=== PATIENT | female | born 1980 | race Caucasian/White ===

== ENCOUNTER 2016-10-16 17:32 | Emergency (ER) | payer MEDICARE, MEDICAID ==
[2016-10-16 18:04] VITALS: BP 110/65
--- NOTE | 2016-10-16 18:37 | UC ---
Skin Complaint HPI - HPI Summary HPI Summary: The patient comes in today for: 1. Rash: Onset: 3 days ago. Palliative/Provocative: Hot showers makes it worse. Feels "Rough." Quality: Itchy--a lot. Region: chest, abdomen, hips, under her legs, and antecubital fossa, Severity: 8/10 (itching) Time: Constant. Associated symptoms: Previous treatment: She tried OTC 1% hydrocortisone ointment which did not help. Skin disease history: Eczema in the winter. Fevers: None. Discharge: None. She has not seen anyone for this before. In the past, she has not seen anyone for her eczema in the winter. She will only have a "few patches" in the winter. She knows of no things that she is exposed to that bring it on. PCP: She sees Ms. Valle * - History of Current Complaint Chief Complaint: UCSkin Time Seen by Provider: 10/16/16 18:29 Stated Complaint: RASH Hx Obtained From: Patient Hx Last Menstrual Period: Mirena ?: No - Allergy/Home Medications Allergies/Adverse Reactions: Allergies Allergy/AdvReac Type Severity Reaction Status Date / Time No Known Allergies Allergy Verified 10/16/16 18:03 Review of Systems Constitutional: Negative Skin: Rash Eyes: Negative ENT: Negative Respiratory: Negative Cardiovascular: Negative Gastrointestinal: Negative Genitourinary: Negative All Other Systems Reviewed And Are Negative: Yes PMH/Surg Hx/FS Hx/Imm Hx Previously Healthy: No Endocrine History Of: Denies: Diabetes, Thyroid Disease, Hyperthyroidism, Hypothyroidism, Dyslipidemia Cardiovascular History Of: Denies: Cardiac Disorders, Hypertension, Pacemaker/ICD, Myocardial Infarction , Congestive Heart Failure, Atrial Fibrillation, Deep Vein Thrombosis, Bleeding Disorders Respiratory History Of: Denies: COPD, Asthma, Bronchitis, Pneumonia, Pulmonary Embolism GI/ History Of: Reports: Ulcer - small intestine Denies: Gastroesophageal Reflux, Gastrointestinal Bleed, Gall Bladder Disease , Kidney Stones, Diverticulitis, Renal Disease, Urosepsis Neurological History Of: Denies: TIA, CVA, Dementia, Seizures, Migraine Psychological History Of: Reports: Anxiety - On no medications (supposed to be on medications). Denies: Depression, Bipolar Disorder, Schizophrenia, Post Traumatic Stress Disorder Cancer History Of: Denies: Lung Cancer, Colorectal Cancer, Breast Cancer, Prostate Cancer, Cervical Cancer Other History Of: Negative For: HIV, Hepatitis B, Hepatitis C, Anticoagulant Therapy - Surgical History Surgical History: None Surgery Procedure, Year, and Place: Endometriosis. Laparoscopy - Family History Known Family History: Positive: Cardiac Disease, Hypertension, Diabetes - Social History Occupation: Unemployed Alcohol Use: None Substance Use Type: None Smoking Status (MU): Former Smoker Type: Cigarettes Amount Used/How Often: 1 PPD Length of Time of Smoking/Using Tobacco: 14 Years Household Exposure Type: Cigarettes Physical Exam Triage Information Reviewed: Yes Appearance: Well-Appearing, No Pain Distress, Well-Nourished Vital Signs: Initial Vital Signs Temp 97.7 F 10/16/16 17:58 Pulse 79 10/16/16 17:58 Resp 16 10/16/16 17:58 BP 110/65 10/16/16 17:58 Pulse Ox 99 10/16/16 17:58 Vital Signs Reviewed: Yes Eyes: Positive: Conjunctiva Clear. Negative: Discharge ENT: Positive: Hearing grossly normal. Negative: Pharyngeal erythema, Nasal congestion, Nasal drainage, TM bulging, TM dull, TM red, Tonsillar swelling, Tonsillar exudate Dental: Negative: Gross Decay/Caries @, Dental Fracture @ Neck: Positive: Supple, Nontender, No Lymphadenopathy. Negative: Nuchal Rigidity Respiratory: Positive: Lungs clear, No respiratory distress, No accessory muscle use. Negative: Crackles, Wheezing, Expiration, Inspiration Cardiovascular: Positive: RRR, No Murmur Abdomen Description: Positive: Nontender, No Organomegaly, Soft. Negative: Distended, Guarding Musculoskeletal: Positive: Strength Intact, ROM Intact, No Edema Neurological: Positive: Alert, Muscle Tone Normal Psychological: Positive: Age Appropriate Behavior, Consolable Skin: Positive: rashes - She has slight erythema and slight raised nature to the erythema on the lateral hips, behind the knees, antecubital fossa, and inframammary areas. Course/Dx - Course Course Of Treatment: Patient was told that she may have a fungal infection under the breasts, but she has dry and irritated skin. She was told to only use Dove soap (without scents or color) and no other skin preparations. - Differential Diagnoses - Skin Complaint Differential Diagnoses: Cellulitis, Eczema, Urticaria - Diagnoses Provider Diagnoses: eczema. asteatotic dermatitis. candidal dermatitis ( inframammary) Discharge - Discharge Plan Condition: Stable Disposition: HOME Patient Education Materials: Eczema (ED), Dermatitis (ED) Referrals: Sylvain Styles DO [Primary Care Provider] - 1 Week (Please see your primary care provider in about a week to see how well you are doing. If you get worse, please be seen sooner.)
== END 2016-10-16 19:10 | disposition home or self-care (01) ==
LOC: UCCORT 17:32
DX: L30.8 Other specified dermatitis (principal); B37.2 Candidiasis of skin and nail; Z87.891 Personal history of nicotine dependence
CPT/HCPCS: 99212; G0463

== ENCOUNTER 2016-12-04 08:43 | Emergency (ER) | payer MEDICARE, MEDICAID ==
[2016-12-04 09:53] VITALS: BP 124/83
--- NOTE | 2016-12-04 10:07 | UC ---
Respiratory Complaint HPI - HPI Summary HPI Summary: 3d of sinus congestion, chills, body aches, malaise, poor appetite, scratchy throat. No cough so far. Boyfriend and son ill with similar symptoms. No rash. No vomiting or diarrhea. Taking Sudafed Q2 hrs because she feels so bad and congested - History of Current Complaint Chief Complaint: UCRespiratory Stated Complaint: SINUS FEVER DIZZY Time Seen by Provider: 12/04/16 09:48 Hx Obtained From: Patient Hx Last Menstrual Period: HAS AN IUD, DOES NOT HAVE REG PERIODS Onset/Duration: Gradual Onset, Lasting Days - 3 Timing: Constant Severity Initially: Mild Severity Currently: Mild Aggravating Factors: Recumbent Position Alleviating Factors: OTC Meds Associated Signs And Symptoms: Positive: Fever - subjective, Chills, URI, Nasal Congestion, Hoarseness, Sinus Discomfort - Risk Factors Pulmonary Embolism Risk Factors: Negative Cardiac Risk Factors: Negative Pseudomonas Risk Factors: Negative Tuberculosis Risk Factors: Negative - Allergies/Home Medications Allergies/Adverse Reactions: Allergies Allergy/AdvReac Type Severity Reaction Status Date / Time No Known Allergies Allergy Verified 12/04/16 09:43 Home Medications: Home Medications Levonorgestrel (IUD) (NF) [Mirena (NF)] 20 mcg IU 12/04/16 [History] Cdkmcpnsxxbxa-Cglgrcwcrmcie-Fd [Tylenol Sinus Congestion 5-325-200 mg] 12 tab PO Q2H PRN 12/04/16 [History Confirmed 12/04/16] PMH/Surg Hx/FS Hx/Imm Hx Endocrine History Of: Denies: Diabetes, Thyroid Disease, Hyperthyroidism, Hypothyroidism, Dyslipidemia Cardiovascular History Of: Denies: Cardiac Disorders, Hypertension, Pacemaker/ICD, Myocardial Infarction , Congestive Heart Failure, Atrial Fibrillation, Deep Vein Thrombosis, Bleeding Disorders Respiratory History Of: Denies: COPD, Asthma, Bronchitis, Pneumonia, Pulmonary Embolism GI/ History Of: Reports: Ulcer - small intestine Denies: Gastroesophageal Reflux, Gastrointestinal Bleed, Gall Bladder Disease , Kidney Stones, Diverticulitis, Renal Disease, Urosepsis Neurological History Of: Denies: TIA, CVA, Dementia, Seizures, Migraine Psychological History Of: Reports: Anxiety - On no medications (supposed to be on medications). Denies: Depression, Bipolar Disorder, Schizophrenia, Post Traumatic Stress Disorder Cancer History Of: Denies: Lung Cancer, Colorectal Cancer, Breast Cancer, Prostate Cancer, Cervical Cancer Other History Of: Negative For: HIV, Hepatitis B, Hepatitis C, Anticoagulant Therapy - Surgical History Surgical History: None Surgery Procedure, Year, and Place: Endometriosis. Laparoscopy - Family History Known Family History: Positive: Cardiac Disease, Hypertension, Diabetes - Social History Occupation: Unemployed - stay at home mom Lives: With Family Alcohol Use: None Substance Use Type: None Smoking Status (MU): Former Smoker Type: Cigarettes Amount Used/How Often: 1 PPD Length of Time of Smoking/Using Tobacco: 14 Years Household Exposure Type: Cigarettes - Immunization History Most Recent Influenza Vaccination: AUG 2016 Review of Systems Constitutional: Fever, Chills, Fatigue Skin: Negative Eyes: Negative ENT: Sore Throat, Nasal Discharge Respiratory: Negative Cardiovascular: Negative Gastrointestinal: Negative Genitourinary: Negative Motor: Negative Neurovascular: Negative Musculoskeletal: Negative Neurological: Headache Psychological: Negative All Other Systems Reviewed And Are Negative: Yes Physical Exam Triage Information Reviewed: Yes Appearance: Well-Appearing, No Pain Distress, Well-Nourished Vital Signs: Initial Vital Signs Temp 97.9 F 12/04/16 09:46 Pulse 79 12/04/16 09:46 Resp 24 12/04/16 09:46 BP 124/83 12/04/16 09:46 Pulse Ox 99 12/04/16 09:46 Vital Signs Reviewed: Yes Eye Exam: Normal Eyes: Positive: Conjunctiva Clear ENT: Positive: Hearing grossly normal, Pharynx normal, Nasal congestion, Nasal drainage, TMs normal, Muffled/hoarse voice - hoarse. Negative: Pharyngeal erythema, Tonsillar swelling, Tonsillar exudate, Trismus Neck exam: Normal Neck: Positive: Supple Respiratory Exam: Normal Respiratory: Positive: Lungs clear, Normal breath sounds, No respiratory distress, No accessory muscle use Cardiovascular Exam: Normal Cardiovascular: Positive: RRR Abdominal Exam: Normal Musculoskeletal Exam: Normal Neurological Exam: Normal Neurological: Positive: Alert, Muscle Tone Normal Psychological Exam: Normal Skin Exam: Normal UC Diagnostic Evaluation - Laboratory O2 Sat by Pulse Oximetry: 99 Respiratory Course/Dx - Differential Dx/Diagnosis Differential Diagnosis/HQI/PQRI: Bronchitis, Lower Resp Infection, Sinusitis Provider Diagnoses: URI Discharge - Discharge Plan Condition: Stable Disposition: HOME Prescriptions: Guaifenesin-Codeine [Cheratussin AC] 1 - 2 teasp PO Q6HR PRN #120 ml MDD 30ml PRN Reason: Cough Oxymetazoline HCl [Afrin Nasal [place]] 0.05 % NA BID PRN #1 bottle PRN Reason: nasal congestion Patient Education Materials: Upper Respiratory Infection (ED) Referrals: Zee Johnson [Primary Care Provider] -
== END 2016-12-04 10:15 | disposition home or self-care (01) ==
LOC: UCCORT 08:43
DX: J06.9 Acute upper respiratory infection, unspecified (principal); Z87.891 Personal history of nicotine dependence
CPT/HCPCS: 99212; G0463

== ENCOUNTER 2018-11-07 14:22 | Emergency (ER) | payer MEDICARE, MEDICAID ==
[2018-11-07 15:12] VITALS: BP 131/92
--- NOTE | 2018-11-07 15:25 | UC ---
Respiratory Complaint HPI - HPI Summary HPI Summary: 6 day hx of nasal reema. , sinusitis, and cough. sick contacts: did not get flu shot. - History of Current Complaint Chief Complaint: UCGeneralIllness Stated Complaint: CONGESTION, COUGH, SORE THROAT Time Seen by Provider: 11/07/18 15:08 Hx Obtained From: Patient Hx Last Menstrual Period: IUD Pain Intensity: 5 Pain Scale Used: 0-10 Numeric Character: Cough: Nonproductive Aggravating Factors: Nothing Alleviating Factors: Nothing Associated Signs And Symptoms: Negative: Dyspnea - Allergies/Home Medications Allergies/Adverse Reactions: Allergies Allergy/AdvReac Type Severity Reaction Status Date / Time No Known Allergies Allergy Verified 12/04/16 09:43 PMH/Surg Hx/FS Hx/Imm Hx Previously Healthy: Yes Other History Of: Negative For: HIV, Hepatitis B, Hepatitis C, Anticoagulant Therapy - Surgical History Surgical History: Yes Surgery Procedure, Year, and Place: Endometriosis. Laparoscopy - Family History Known Family History: Positive: Cardiac Disease, Hypertension, Diabetes - Social History Alcohol Use: None Substance Use Type: None Smoking Status (MU): Former Smoker Type: Cigarettes Amount Used/How Often: 1 PPD Length of Time of Smoking/Using Tobacco: 14 Years Household Exposure Type: Cigarettes - Immunization History Most Recent Influenza Vaccination: AUG 2016 Review of Systems All Other Systems Reviewed And Are Negative: Yes Constitutional: Negative: Fever Skin: Negative: Rash Eyes: Negative: Drainage ENT: Positive: Sinus Congestion, Sinus Pain/Tenderness. Negative: Sore Throat Respiratory: Positive: Cough Cardiovascular: Positive: Negative Neurological: Negative: Headache Physical Exam Triage Information Reviewed: Yes Appearance: Well-Appearing Vital Signs: Initial Vital Signs Temp 97.3 F 11/07/18 15:07 Pulse 76 11/07/18 15:07 Resp 19 11/07/18 15:07 BP 131/92 11/07/18 15:07 Pulse Ox 100 11/07/18 15:07 Vital Signs Reviewed: Yes Eyes: Positive: Conjunctiva Clear ENT: Positive: Pharynx normal - dentures upper, Nasal congestion, TMs normal Neck: Positive: Supple, Nontender, No Lymphadenopathy Respiratory: Positive: Normal breath sounds, No accessory muscle use, Other: - coughing fits during visit.. Negative: Crackles, Rhonchi, Stridor, Wheezing Cardiovascular Exam: Normal Neurological: Positive: Alert Skin: Negative: Rashes UC Diagnostic Evaluation - Laboratory O2 Sat by Pulse Oximetry: 100 - Radiology Radiology Interpretation Completed By: Radiologist Summary of Radiographic Findings: IMPRESSION: NO ACTIVE CARDIOPULMONARY DISEASE. Respiratory Course/Dx - Course Course Of Treatment: 6 days of worsening cough. exam significant for coughing fits, rales/rhonchi. vitals good. rapid flu neg. cxr shows no consolidation. tessalon perles and inhaler for cough. if worsening over the next week advised to return. - Differential Dx/Diagnosis Differential Diagnosis/HQI/PQRI: Asthma, Bronchitis, Influenza Provider Diagnosis: Viral illness Discharge - Sign-Out/Discharge Documenting (check all that apply): Patient Departure All imaging exams completed and their final reports reviewed: No Studies - Discharge Plan Condition: Good Disposition: HOME Prescriptions: Albuterol HFA INHALER* [Ventolin HFA Inhaler*] 2 puff INH Q4H PRN #1 mdi PRN Reason: Cough Benzonatate CAP* [Tessalon 100 MG CAP*] 100 mg PO TID 3 Days #9 cap Patient Education Materials: Viral Syndrome (ED) Forms: *Work Release Referrals: Kaitlyn Casarez [Primary Care Provider] - - Billing Disposition and Condition Condition: GOOD Disposition: Home
[2018-11-07 15:43] LABS: Influenza A Molecular NEGATIVE (Negative); Influenza B Molecular NEGATIVE (Negative)
== END 2018-11-07 16:19 | disposition home or self-care (01) ==
LOC: UCCORT 14:22
DX: B34.9 Viral infection, unspecified (principal); R09.81 Nasal congestion; J32.9 Chronic sinusitis, unspecified; R05 Cough; Z87.891 Personal history of nicotine dependence
CPT/HCPCS: 71046; 99212; G0463

== ENCOUNTER 2019-08-25 09:11 | Emergency (ER) | payer MEDICARE, MEDICAID ==
--- OUTSIDE RECORDS SUMMARY | 2019-08-25 09:26 | XMS REPORT | Continuity of Care Document ---
:10/02/1978 Author Organization [facility] Care Team Providers Name Role Phone LEE LOMBARDO Admitting Physician LEE LOMBARDO Attending Physician Allergies and Intolerances No Allergy Data in the System Medications No Known Medications Medications At Time Of Discharge No data in the system Problems No Data in the system Procedures No data in the system Results Laboratory Results Order: COMPREHENSIVE PANEL Specimen Source : Body Site: Legend: (G,H) = High, (GG,HH,CH,#H) = Above High Threshold, (#,L) = Low, (##,CL,#L,LL) = Below Low Threshold, (C,CC,CA,#A,A) = Abnormal LOINC Test Result Flag Range Units Date 2951-2 1Sodium SerPl-sCnc 141 136-145 mmol/L 06/16/2019 08:27 2823-3 1Potassium SerPl-sCnc 3.9 3.5-5.2 mmol/L 06/16/2019 08:27 2075-0 1Chloride SerPl-sCnc 105 100-108 mmol/L 06/16/2019 08:27 8-9 1CO2 SerPl-sCnc 24 21-32 mmol/L 06/16/2019 08:27 2345-7 1Glucose SerPl-mCnc 106 H 70-100 mg/dL 06/16/2019 08:27 3094-0 1BUN SerPl-mCnc 13 7-21 mg/dL 06/16/2019 08:27 2160-0 1Creat SerPl-mCnc 0.8 0.6-1.3 mg/dL 06/16/2019 08:27 Interpretive Vera: 1Normal Kidney Function or Mild Disease - GFR >OR= 60 Chronic Kidney Disease - GFR 15-59 Renal Failure - GFR < 15 GFR not calculated on patients under 18 years of age. Calculated (estimated) GFR is based on the MDRD Study equation, which assumes a steady state for creatinine. Estimated GFR may not be appropriate for medication dosing. 88426-4 1Ca-I SerPl-mCnc 8.9 8.5-10.8 mg/dL 06/16/2019 08:27 55313-7 1GFR/BSA.pred SerPl-ArVRat >60 06/16/2019 08:27 12462-8 1Bilirub Bld-mCnc 0.8 0.0-1.2 mg/dL 06/16/2019 08:27 2885-2 1Prot SerPl-mCnc 7.1 6.4-8.2 gm/dL 06/16/2019 08:27 1751-7 1Albumin SerPl-mCnc 4.2 3.4-4.8 gm/dL 06/16/2019 08:27 6768-6 1ALP SerPl-cCnc 85 40-150 U/L 06/16/2019 08:27 1742-6 1ALT SerPl-cCnc 34 0-55 U/L 06/16/2019 08:27 1920-8 1AST SerPl-cCnc 42 H 5-37 U/L 06/16/2019 08:27 Performing Lab Footnotes:[facility] - [id number] - [address] [place] [address] RIA[place] PARI Social History Code Code System Social History Description Dates Observed Observation 071988157 SNOMED CT Current Smoking Unknown if ever Status smoked UNK AdministrativeGender Sex Assigned At Unknown Vital Signs No data in the system Goals Section No data in the system Health Concerns No data in the systemEncounter Diagnosis Date Code Code System Diagnosis Status I10 ICD10 ESSENTIAL PRIMARY HYPERTENSION Active Advance Directives No Data in the System Encounters Encounter Diagnosis Location Date ESSENTIAL PRIMARY HYPERTENSION [facility] 06/16/2019 Family History Family history not obtained Functional Status No data in the system Immunizations No data in the system Medical Equipment No data in the system Mental Status No data in the system Assessment and Plan Assessments No data in the systemPlan Of Treatment No data in the systemPending Tests No data in the system Hospital Discharge Instructions No data in the system Reason for Visit No data in the system
[2019-08-25 09:36] VITALS: BP 145/83
--- NOTE | 2019-08-25 09:51 | UC ---
Hand/Wrist HPI - HPI Summary HPI Summary: 38-year-old female who has had left thumb pain and clicking over the past 2 weeks with no known injury. She states that now causes pain to shoot up into her hand as well as some tingling in her left index finger. - History Of Current Complaint Chief Complaint: UCUpperExtremity Stated Complaint: LT THUMB PAIN,NUMBNESS Time Seen by Provider: 08/25/19 09:43 Hx Obtained From: Patient Hx Last Menstrual Period: "last week" ?: No Onset/Duration: Gradual Onset Severity Initially: Mild Severity Currently: Moderate Pain Intensity: 10 Character Of Pain: Sharp, Aching Aggravating Factor(s): Movement Alleviating Factor(s): Rest Associated Signs And Symptoms: Positive: Numbness/Tingling - Mild numbness and tingling left index finger. - Allergies/Home Medications Allergies/Adverse Reactions: Allergies Allergy/AdvReac Type Severity Reaction Status Date / Time No Known Allergies Allergy Verified 08/25/19 09:31 Home Medications: Home Medications Labetalol TAB* [Trandate TAB*] 600 mg PO BID 08/25/19 [History Confirmed ] Nicotine PATCH 21 MG/24 HR* 21 mg TRANSDERM DAILY 08/25/19 [History Confirmed ] PMH/Surg Hx/FS Hx/Imm Hx Previously Healthy: Yes GI/ History: Ulcer Other History Of: Negative For: HIV, Hepatitis B, Hepatitis C, Anticoagulant Therapy - Surgical History Surgical History: Yes Surgery Procedure, Year, and Place: , 2018, [place]; Laparoscopy for Endometriosis, 2015, [place] - Family History Known Family History: Positive: Cardiac Disease, Hypertension, Diabetes - Social History Lives: With Family Alcohol Use: None Substance Use Type: None Smoking Status (MU): Former Smoker Type: Cigarettes Amount Used/How Often: 1 PPD Length of Time of Smoking/Using Tobacco: On and Off Since Age 14 When Did the Patient Quit Smoking/Using Tobacco: 07/26 Household Exposure Type: Cigarettes - Immunization History Most Recent Influenza Vaccination: AUG 2016 Review of Systems All Other Systems Reviewed And Are Negative: Yes Motor: Positive: Negative Neurovascular: Positive: Decreased Sensation - Mild numbness and tingling left index finger. Musculoskeletal: Positive: Other: - Left thumb "clicks" with movement. Is Patient Immunocompromised?: No Physical Exam Triage Information Reviewed: Yes Appearance: Well-Appearing, No Pain Distress, Well-Nourished Vital Signs: Initial Vital Signs Temp 98.3 F 08/25/19 09:28 Pulse 75 08/25/19 09:28 Resp 14 08/25/19 09:28 BP 145/83 08/25/19 09:28 Pulse Ox 99 08/25/19 09:28 Vital Signs Reviewed: Yes Musculoskeletal: Positive: Strength Intact, ROM Intact, Other: - Good peripheral pulses, neuro sensation, capillary refill. Good finger strength with flexion extension against resistance. Patient has good neural sensation in the index finger and the thumb. No deformity, erythema, swelling or bruising is noted. Neurological Exam: Normal Psychological Exam: Normal Skin Exam: Normal Hand/Wrist Course/Dx - Course Course Of Treatment: Left hand x-ray:FINDINGS: BONE DENSITY: Normal. BONES: There is no displaced fracture. JOINTS: There is no arthropathy. ALIGNMENT: There is no dislocation. SOFT TISSUES: Unremarkable. OTHER FINDINGS: None. IMPRESSION: NO ACUTE OSSEOUS INJURY. IF SYMPTOMS PERSIST, RECOMMEND REPEAT IMAGING. At this point I feel the patient may be having a small amount of tendinitis however because she has a clicking in the thumb I think she should follow up with a hand specialist, that being Dr. Silva. The patient is agreeable to this plan of action. - Differential Dx/Diagnosis Provider Diagnosis: Tendinitis of thumb Discharge ED - Sign-Out/Discharge Documenting (check all that apply): Patient Departure All imaging exams completed and their final reports reviewed: Yes - Discharge Plan Condition: Good Disposition: HOME Patient Education Materials: Tendinitis (ED) Referrals: Kaitlyn Casarez [Primary Care Provider] - Patrizia Silva MD [Medical Doctor] - Additional Instructions: He may take Motrin for pain every 8 hours. May apply warm compresses to the area. Follow-up with Dr. Silva for further specialized care - Billing Disposition and Condition Condition: GOOD Disposition: Home - Attestation Statements Provider Attestation: I was available for consult. This patient was seen by the SAVANNAH. The patient was not presented to, seen by, or examined by me. -Candace
== END 2019-08-25 10:39 | disposition home or self-care (01) ==
LOC: UCCORT 09:11
DX: M77.8 Other enthesopathies, not elsewhere classified (principal); Z87.891 Personal history of nicotine dependence
CPT/HCPCS: 99211; G0463